=== PATIENT | male | born 1950 | race Caucasian/White ===

== ENCOUNTER 2023-10-28 07:15 | Day surgery (SDC) | payer OTHER ==
[2023-10-28 08:22] LABS: PT Prothrombin Time 12.3 SECONDS (9.4-12.5); PTT, Activated Partial Thromb 30.5 SECONDS (24.3-36.9); Protime INR 1.1
[2023-10-28] MEDS ORDERED: Ringers Lactate 1,000 ML IV ONE (08:32)
[2023-10-28] MEDS ORDERED: FENTANYL CITR 100 MCG/2 ML ONE (08:34)
[2023-10-28] MEDS ORDERED: MIDAZOLAM HCL 2 MG/2 ML INJ ONE (08:34)
[2023-10-28] MEDS ORDERED: FLUMAZENIL 0.1 MG/ML (5 mL VIAL) IV ONE (08:34)
[2023-10-28] MEDS ORDERED: NALOXONE HCL 2 MG/2 ML VIAL ONE (08:35)
[2023-10-28 08:39] LABS: Absolute Basophils 0.2 K/uL (0-0.5); Absolute Eosinophils 0.1 K/uL (0-0.5); Absolute Lymphocytes (CBC) 1.3 K/uL (0.7-4.9); Absolute Monocytes 0.4 K/uL (0.1-1.3); Hemoglobin 8.4 g/dL (13.6-17.9); MCV 90.2 fL (80-100); Nucleated Red Blood Cells % 0.1 % (0-0); RBC Red Blood Cell Count 2.84 M/uL (4.33-5.43)
[2023-10-28 08:40] LABS: MPV 7.8 fL (7.6-11.3); Platelets 275 thou/uL (152-406)
[2023-10-28 08:50] LABS: Basophils % 3.9 % (0-1.3); Eosinophils % 2.8 % (0-4.4); Lymphocytes % 25.1 % (15.3-44.8); MCH 29.4 pg (27.0-35.0); MCHC 32.6 g/dL (32.0-36.0); Monocytes % 8.6 % (3.3-12.3); Neutrophils % 59.6 % (41.7-73.7)
[2023-10-28 08:52] LABS: Hematocrit 25.7 % (39.6-49.0)
[2023-10-28 09:27] LABS: Differential Total Cells Count 100
[2023-10-28 09:28] LABS: Atypical Lymphocytes 2 %; Eosinophils 1 % (0-3); Lymphocytes 24 % (15-42); Monocytes 8 % (0-10); Platelet Estimate ADEQ; Segmented Neutrophils 64 % (40-80)
[2023-10-28 10:44] LABS: Blood Morphology Comment NOT SEEN (NOT SEEN)
[2023-10-28 11:34] LABS: Cytogenetics, Bone Marrow SENT; Flow Cytometry, Bone Marrow SENT
[2023-10-28 11:40] VITALS: BMI 32.9
[2023-10-28 11:45] VITALS: BP 141/66; TEMP 97.1; O2SAT 97
--- NOTE | 2023-10-28 12:21 | RAD REPORT ---
EXAM DESCRIPTION: - Bone Marrow Biopsy - 10/28/2023 10:28 am CLINICAL HISTORY: Hemolytic anemia. Bone marrow bx COMPARISON: No comparisons FINDINGS: Preoperative diagnosis: Hemolytic anemia Post operative diagnosis: Same Conscious Sedation: Intravenous conscious sedation was provided via 1 milligram Versed and 100 microg bridget fentanyl. Total sedation time: 15 minutes Patient was continuously monitored by nursing staff. Contrast used: NONE Estimated blood loss: less than 5 mL Specimens: As below Informed consent was obtained following discussion of the risks and benefits with the patient. Time-o ut procedure was performed. The patient was placed prone on the table and the right buttock area was prepped and draped in the usual sterile fashion. 1% lidocaine was infiltrated into the subcutaneous t issues for local anesthesia. Under computed tomographic guidance, a 13 gauge introducer was manually advanced into the right iliac wing. Subsequently, the coaxial inner needle was removed, and a sheath was further advanced into the right iliac wing. Aspiration of a total of 12 mL bone marrow aspirate, as well as acquisition of a bone core, were performed. Postprocedure imaging demonstrated no complications. Samples were given to pathology for analysis. Th e patient tolerated the procedure without immediate complication and transferred to the recovery room in stable condition. IMPRESSION: Successful CT-guided bone marrow aspiration/ biopsy, as above. All CT scans are performed using dose optimization technique as appropriate and may include automated exposure control or mA/KV adjustment according to patient size.
== END 2023-10-28 11:20 | disposition home or self-care (01) ==
LOC: DS 07:15
PROVIDERS: ATTEND Internal Medicine
PROC: 07DR3ZX Extraction of Iliac Bone Marrow, Percutaneous Approach, Diagnostic (ICD-10-PCS; principal; 2023-10-28)
DX: D59.8 Other acquired hemolytic anemias (principal); D53.8 Other specified nutritional anemias; I48.0 Paroxysmal atrial fibrillation; E78.49 Other hyperlipidemia
CPT/HCPCS: 85025; 36415; 88313; 85610; 85044; 88305; 88311; 85730; 38221; 77012; J2250; J3010; J7120; J2310

== ENCOUNTER 2024-04-13 06:42 | Day surgery (SDC) | payer OTHER ==
[2024-04-13] MEDS: Ringers Lactate 1,000 ML IV ONE (07:15)
[2024-04-13 07:26] LABS: Absolute Basophils 0.1 K/uL (0-0.5); Absolute Eosinophils 0.4 K/uL (0-0.5); Absolute Lymphocytes (CBC) 0.5 K/uL (0.7-4.9); Absolute Monocytes 0.7 K/uL (0.1-1.3); Absolute Neutrophil 3.8 K/uL (1.8-8.0); Eosinophils % 7.5 % (0-4.4); Hemoglobin 12.5 g/dL (13.6-17.9); Lymphocytes % 9.3 % (15.3-44.8); MCH 30.9 pg (27.0-35.0); MCHC 33.8 g/dL (32.0-36.0); MCV 91.6 fL (80-100); Monocytes % 13.5 % (3.3-12.3); Neutrophils % 68.7 % (41.7-73.7); Nucleated Red Blood Cells % 0.1 % (0-0); Platelets 236 thou/uL (152-406); RBC Red Blood Cell Count 4.04 M/uL (4.33-5.43); Red Cell Distribution Width 16.2 % (12.1-15.2)
[2024-04-13 07:34] LABS: Protime INR 1.05
[2024-04-13 07:39] LABS: Anion Gap 3.7 mEq/L (5.0-15.0); Potassium 3.7 mEq/L (3.5-5.1)
[2024-04-13] MEDS ORDERED: propofoL 200 MG/20 ML VIAL IV ONE (08:23)
[2024-04-13] MEDS ORDERED: LIDOCAINE 2% MPF 5 ML VIAL ONE (08:23)
[2024-04-13] MEDS ORDERED: ONDANSETRON 4 MG/2 ML VIAL ONE (08:23)
[2024-04-13] MEDS ORDERED: FENTANYL CITR 100 MCG/2 ML ONE (08:24)
[2024-04-13] MEDS: CEFAZOLIN SODIUM 2 GM/VIAL ONE (08:42)
[2024-04-13] MEDS ORDERED: GLYCOPYRROLATE 0.2 MG/ML SYR ONE (08:43)
[2024-04-13] MEDS: BUPIVACAINE 0.5% PF 10 ML VIAL ONE (08:47)
[2024-04-13] MEDS ORDERED: Mastisol Adhesive Liq ONE (08:53)
--- NOTE | 2024-04-13 09:10 | P.OP ---
Date of Service: 04/13/24 Preop diagnosis: CLL, status post Port-A-Cath placement Postop diagnosis: Same Procedure performed: Removal of right chest Port-A-Cath device Surgeon: John Gordon MD Regulatory Manager: None Estimated blood loss: Minimal Specimen: Port-A-Cath device for identification only Findings: As above Anesthesia: General Complications: None Drains: None Fluids and blood products: Nonapplicable Disposition: Recovery room Operative note: Patient brought to the OR and placed in supine position. General anesthesia began. Patient prepped and draped in usual sterile fashion. Marcaine 0.5% infiltrated locally. 15 blade used to make a 3 cm incision over the Port-A-Cath device. Subcutaneous tissue divided. Bleeding controlled with cautery. Port-A-Cath device identified and removed. Port-A-Cath device sent to pathology for identification only. Wound irrigated bleeding controlled cautery. 3-0 chromic used to approximate subcutaneous tissue and close skin. Sterile dressing applied. Patient awakened and taken to her room in good general condition. CC: Dr. Davis's Office
[2024-04-13] MEDS ORDERED: HYDROCODONE/APAP 5/325 MG TAB ONE (10:10)
[2024-04-13] MEDS: HYDROCODONE/APAP 5/325 MG TAB PO PRN (10:17)
--- NOTE | 2024-04-14 11:52 | EKG ---
Test Date: 2024-04-13 Test Time: 08:01:00 Assistant Brand Manager: PREO MEASUREMENT RESULTS: Intervals: Rate: 53 [place]: QRSD: 80 QT: 444 QTc: 416 [place]: P: [place]: QRS: 59 T: 41 INTERPRETIVE STATEMENTS: Sinus bradycardia Anteroseptal infarct, age undetermined Abnormal ECG Compared to ECG 01/31/2002 07:56:00 Myocardial infarct finding now present Sinus rhythm no longer present Electronically Signed On 04-14-24 11:52:11 [employer] by Mack Begum
[2024-04-15 02:01] VITALS: BP 138/63; TEMP 97.3; O2SAT 100
== END 2024-04-13 10:51 | disposition home or self-care (01) ==
LOC: OR 06:42
PROVIDERS: ATTEND Surgery
PROC: 0JPT0WZ Removal of Totally Implantable Vascular Access Device from Trunk Subcutaneous Tissue and Fascia, Open Approach (ICD-10-PCS; principal; 2024-04-13 08:30)
DX: Z45.2 Encounter for adjustment and management of vascular access device (principal); C95.10 Chronic leukemia of unspecified cell type not having achieved remission
CPT/HCPCS: 36415; 80048; 85025; 85610; 85730; 88300; 93005; J2003; J2405; J2704; J3010; J7120